=== PATIENT | female | born 1990 | race Caucasian/White ===

== ENCOUNTER 2023-12-26 08:58 | Observation (INO) | payer OTHER, SELFPAY ==
[2023-12-26 09:22] VITALS: BP 124/75; BMI 35.5
== END 2023-12-26 15:00 | disposition home or self-care (01) ==
LOC: LDRP 08:58
PROVIDERS: ADMITTING PHYSICIAN Obstetrics & Gynecology; FAMILY PHYSICIAN Obstetrics & Gynecology
DX: O48.0 Post-term pregnancy (principal); Z3A.40 40 weeks gestation of pregnancy
CPT/HCPCS: 36415; 76815; 86850; 86900; 86901; G0378

== ENCOUNTER → 2023-12-30 11:26 | Outpatient (REF) | payer OTHER, SELFPAY | LOC: PNTC 11:26 | PROVIDERS: ATTENDING PHYSICIAN Obstetrics & Gynecology | DX: O48.0 Post-term pregnancy (principal) | CPT/HCPCS: 59025; 76815 ==

== ENCOUNTER 2024-01-01 19:05 | Inpatient (IN) | payer OTHER, SELFPAY ==
[2024-01-01 19:29] VITALS: BP 134/82; BMI 36.0
[2024-01-01] MEDS: CYTOTEC 25 MICROGRAM VAG (20:28)
[2024-01-01 20:30] LABS: % Basophils 0.1 % (0-2); % Eosinophils 0.6 % (0-6); % Immature Granulocytes 0.4 % (0-0.5); % Lymphocytes 19.9 % (20.5-51.1); % Monocytes 6.6 % (1.7-9.3); % Neutrophils 72.4 % (42.2-75.2); Absolute Eosinophils 0.1 10^3/uL (0-0.7); Absolute Lymphocytes 2.2 10^3/uL (1.2-3.4); Absolute Monocytes 0.7 10^3/uL (0.1-0.6); Absolute Neutrophils 7.9 10^3/uL (1.4-6.5); Hematocrit 33.3 % (37.0-47.0); Hemoglobin 11.9 g/dL (12.0-16.0); Mean Corp Hgb Conc. 35.7 g/dL (33.0-37.0); Mean Corpuscular Hgb 31.3 pg (27.0-31.0); Mean Corpuscular Volume 87.6 fL (81.0-99.0); Mean Platelet Volume 9.8 fL (7.4-10.4); Nucleated Red Blood Cells % 0 %; Platelet Count 301 10^3/uL (130-400); Red Cell Dist. Width 13.5 % (11.5-14.5); White Blood Cell Count 10.9 10^3/uL (4.8-10.8)
[2024-01-02] MEDS: CYTOTEC 50 MICROGRAM PO ×2 (00:32→04:39)
[2024-01-02] MEDS: LR 1000 IV ×3 (12:59→22:53)
[2024-01-02] MEDS: CYTOTEC PO ×4 (13:09→19:57)
[2024-01-02] MEDS: SUBLIMAZE 100 MCG EPIDURAL (13:45)
[2024-01-02] MEDS: FENTANYL/BUPIVACAINE 100 EPIDURAL ×2 (13:45→21:30)
[2024-01-02] MEDS: PITOCIN 30 UNITS/NSS 500 ML IV ×2 (17:16→22:12)
[2024-01-02] MEDS: ANCEF 10 IV (22:42)
[2024-01-02 23:46] VITALS: BP 105/64; BP 134/82
[2024-01-03] VITALS: BP 103/59; BP 109/65
[2024-01-03 00:15] VITALS: BP 101/55
[2024-01-03] MEDS: LR 1000 IV (00:18)
[2024-01-03 00:25] VITALS: BP 101/60
--- NOTE | 2024-01-03 00:48 | SUR.PHASEI ---
patient in pacu post surgery for retained placenta, awake, alert and oriented, no pain fundus 2 fingers below umbilicus - confirmed with Dr Brand, pitocin placed pitocin on pump at 42cc/h. Mother brought to bedside, comfortable, minimal to moderate
locsetha, vss - discharge to maternity and hand off at bedside.
[2024-01-03 06:48] LABS: Hematocrit 26.5 % (37.0-47.0); Hemoglobin 9.3 g/dL (12.0-16.0)
[2024-01-03] MEDS: TYLENOL 650 MG PO ×3 (11:57→23:53)
[2024-01-03] MEDS: MOTRIN 600 MG PO ×3 (11:58→23:53)
[2024-01-03] MEDS: FEOSOL 325 MG PO (17:54)
[2024-01-04] MEDS: FEOSOL 325 MG PO (07:57)
[2024-01-04] MEDS: SENOKOT-S 1 TABLET PO (07:57)
[2024-01-04] MEDS: TYLENOL 650 MG PO (08:47)
[2024-01-04] MEDS: MOTRIN 600 MG PO (08:48)
[2024-01-06 14:19] LABS: Syphilis/T. pallidum Ab Reflex Negative (Negative)
== END 2024-01-04 11:48 | disposition home or self-care (01) | DRG 806 ==
LOC: LDRP 19:05
PROVIDERS: Obstetrics & Gynecology; ADMITTING PHYSICIAN Obstetrics & Gynecology
PROC: 3E033VJ Introduction of Other Hormone into Peripheral Vein, Percutaneous Approach (ICD-10-PCS; 2024-01-01)
PROC: 3E0P7VZ Introduction of Hormone into Female Reproductive, Via Natural or Artificial Opening (ICD-10-PCS; 2024-01-01)
PROC: 3E0DXGC Introduction of Other Therapeutic Substance into Mouth and Pharynx, External Approach (ICD-10-PCS; 2024-01-02)
PROC: 0KQM0ZZ Repair Perineum Muscle, Open Approach (ICD-10-PCS; 2024-01-03)
PROC: 10D17Z9 Manual Extraction of Products of Conception, Retained, Via Natural or Artificial Opening (ICD-10-PCS; 2024-01-03)
PROC: 10E0XZZ Delivery of Products of Conception, External Approach (ICD-10-PCS; 2024-01-03)
DX: O48.0 Post-term pregnancy (principal); O72.2 Delayed and secondary postpartum hemorrhage; Z37.0 Single live birth; Z3A.41 41 weeks gestation of pregnancy; O70.1 Second degree perineal laceration during delivery; O77.0 Labor and delivery complicated by meconium in amniotic fluid; Z80.0 Family history of malignant neoplasm of digestive organs; Z80.3 Family history of malignant neoplasm of breast; Z83.3 Family history of diabetes mellitus; Z82.3 Family history of stroke
CPT/HCPCS: 88307; 85014; 85018; 85025; 86780; 86850; 86900; 86901